=== PATIENT | female | born 2000 | race Caucasian/White ===

== ENCOUNTER 2024-08-16 23:33 | Emergency (ER) | payer SELFPAY ==
[2024-08-17 00:23] LABS: #Basophils 0.09 10x3/uL (0.0-0.2); %Basophils 0.6 % (0.0-1.0); %Eosinophils 3.2 % (0.0-10.0); %Lymphocytes 36.5 % (21.0-51.0); %Monocytes 7.8 % (0.0-10.0); %Neutrophils 51.5 % (42.0-75.0); Hematocrit 36.9 % (36.0-47.0); Hemoglobin 12.1 g/dL (12.0-16.0); Mean Corpuscular HGB CONC 32.8 g/dL (32.0-36.0); Mean Corpuscular Hemoglobin 28.4 pg (27.0-31.0); Mean Corpuscular Volume 86.6 fL (78.0-98.0); Mean Platelet Volume 8.8 fL (7.4-10.4); Platelet Count 415 10x3/uL (130-400); RBC Distribution Width 12.7 % (11.5-14.5); Red Blood Cell (RBC) Count 4.26 mill/uL (4.20-5.40)
[2024-08-17 00:43] LABS: ALT (SGPT) 35 U/L (8-55); AST (SGOT) 21 U/L (5-34); Albumin 3.4 g/dL (3.5-5.0); Alkaline Phosphatase 95 U/L (40-110); Anion Gap 12 mmol/L (10-20); BUN (Urea Nitrogen) 7 mg/dL (7.0-18.7); Bilirubin, Total 0.2 mg/dL (0.2-1.2); Calc. Creatinine Clearance 0 mL/min (70-130); Calcium 8.7 mg/dL (7.8-10.44); Carbon Dioxide 22 mmol/L (22-29); Chloride 105 mmol/L (98-107); Estimated GFR 111; Glucose 106 mg/dL (70-105); Lipase 17 U/L (8-78); Magnesium 1.8 mg/dL (1.6-2.6); Potassium 3.4 mmol/L (3.5-5.1); Protein, Total 7.4 g/dL (6.0-8.3); Sodium 136 mmol/L (136-145)
[2024-08-17 00:47] LABS: Troponin I Less than 0.010 ng/mL (< 0.028)
[2024-08-17] MEDS ORDERED: Ketorolac Tromethamine 30 MG (1 mL) VIAL ONE (02:21)
[2024-08-17] MEDS ORDERED: hydrOXYzine Pamoate 25 mg Capsule ONE (02:24)
[2024-08-17] MEDS ORDERED: Iopamidol-370 76% 500 ML MDV (1 ML CHARGE) ONE (13:08)
== END 2024-08-17 03:01 | disposition home or self-care (01) ==
LOC: ERS 23:33
DX: R07.9 Chest pain, unspecified (principal)
CPT/HCPCS: 71045; 71275; 80053; 83690; 83735; 83880; 84484; 85025; 93005; 96374; J1885; Q0177; Q9967

== ENCOUNTER 2024-11-26 10:23 | Emergency (ER) | payer SELFPAY ==
[2024-11-26] MEDS ORDERED: Bupivacaine 0.25% 10 ML VIAL ONE (11:29)
[2024-11-26] MEDS ORDERED: Ketorolac Tromethamine 30 MG (1 mL) VIAL ONE (11:29)
== END 2024-11-26 12:12 | disposition home or self-care (01) ==
LOC: ERS 10:23
DX: K04.7 Periapical abscess without sinus (principal); K02.9 Dental caries, unspecified; F17.290 Nicotine dependence, other tobacco product, uncomplicated
CPT/HCPCS: 64400; J0665; J1885